=== PATIENT | male | born 1990 | race Two or more races ===

== ENCOUNTER 2023-04-23 13:02 | Emergency (ER) | payer SELFPAY ==
[~2023-04-23] VITALS: Ht 170.2 cm; Wt 92.5 kg
[2023-04-23 14:01] VITALS: BP 129/87; PULSE 90; RESP 16; O2SAT 97
[2023-04-23] MEDS ORDERED: HYDROcodone-ACET 5/325MG TAB PO ONE (14:30)
[2023-04-23] MEDS ORDERED: IBUP-1456 PO (14:33)
== END 2023-04-23 14:39 | disposition home or self-care (01) ==
LOC: ER 13:02
DX: S42.035A Nondisplaced fracture of lateral end of left clavicle, initial encounter for closed fracture (principal); V49.88XA Car occupant (driver) (passenger) injured in other specified transport accidents, initial encounter; Y93.89 Activity, other specified; Y92.89 Other specified places as the place of occurrence of the external cause; Y99.8 Other external cause status
CPT/HCPCS: 73000; 73030